=== PATIENT | female | born 1995 | race Two or more races ===

== ENCOUNTER → 2021-12-08 | Emergency (ER) | payer OTHER ==
[~2021-12-08] VITALS: Ht 165.1 cm; Wt 65.8 kg
[~2021-12-08] MED LIST: NAPROXEN375 MG PO
== END | disposition home or self-care (01) ==
LOC: ER 18:09
DX: M76.891 Other specified enthesopathies of right lower limb, excluding foot (principal)

== ENCOUNTER 2021-12-11 11:36 | Emergency (ER) | payer OTHER ==
[~2021-12-11] VITALS: Ht 165.1 cm; Wt 66.7 kg
== END 2021-12-11 14:11 | disposition home or self-care (01) ==
LOC: ER 11:36
DX: M54.30 Sciatica, unspecified side (principal); M25.561 Pain in right knee

== ENCOUNTER 2022-07-31 15:15 | Emergency (ER) | payer OTHER ==
[~2022-07-31] VITALS: Ht 157.5 cm; Wt 54.4 kg
== END 2022-07-31 18:45 | disposition home or self-care (01) ==
LOC: ER 15:15
DX: R00.2 Palpitations (principal); T78.1XXA Other adverse food reactions, not elsewhere classified, initial encounter

== ENCOUNTER → 2022-08-11 | Emergency (ER) | payer OTHER ==
[~2022-08-11] VITALS: Ht 165.1 cm; Wt 59.0 kg
== END | disposition home or self-care (01) ==
LOC: ER 07:41
DX: R11.10 Vomiting, unspecified (principal); T78.1XXA Other adverse food reactions, not elsewhere classified, initial encounter; X58.XXXA Exposure to other specified factors, initial encounter; K29.70 Gastritis, unspecified, without bleeding